=== PATIENT | female | born 1975 | race American Indian/Alaskan Native ===

== ENCOUNTER 2019-06-22 06:50 | Day surgery (SDC) | payer OTHER ==
[2019-06-22] MEDS ORDERED: WATER FOR IRRIG STERILE IR ONE (07:07)
[2019-06-22] MEDS ORDERED: DIPRIVAN 10 MG/ML IV ONE ×2 (08:09)
[2019-06-22] MEDS ORDERED: NACL 0.9% 1000 ML 1,000 ML IV SCH (09:00)
[2019-06-22 09:26] VITALS: BP 140/89
--- NOTE | 2019-06-22 10:44 | Anesthesia Consultation ---
Anesthesia Consult and Med Hx - Airway Mallampati Class: Class II Intubation Access Assessment: Probably Good - Pulmonary Exam CTA: Yes - Cardiac Exam Cardiac Exam: RRR - Pre-Operative Health Status ASA Pre-Surgery Classification: ASA2 Proposed Anesthetic Plan: General, MAC - Cardiovascular System Hx Hypertension: Yes
--- NOTE | 2019-06-22 10:45 | Anesthesia Day of Surgery ---
Anesthesia Day of Surgery - Day of Surgery Patient Examined: Yes Patient H&P Reviewed: Yes Patient is NPO: Yes Beta Blockers: No Cardiac Clearance: No Pulmonary Clearance: No Kamar's Test: N/A
--- NOTE | 2019-06-22 10:45 | Post Anesthesia Evaluation ---
- Post Anesthesia Evaluation Patient Participated: Yes Airway Patent: Yes Stable Respiratory Function: Yes Nausea/Vomiting: No Temp > 96.8F: Yes Pain Manageable: Yes Adequeate Hydration: Yes Anesthesia Complications: No Block Receding Appropriately: Not Applicable Patient on Ventilator: No
== END 2019-06-22 06:51 | disposition home or self-care (01) ==
LOC: GIO 06:50
PROVIDERS: ATTEND Specialist
DX: K21.9 Gastro-esophageal reflux disease without esophagitis (principal); K44.9 Diaphragmatic hernia without obstruction or gangrene; I10 Essential (primary) hypertension; E66.01 Morbid (severe) obesity due to excess calories; Z91.040 Latex allergy status; Z98.84 Bariatric surgery status; Z79.899 Other long term (current) drug therapy; Z91.013 Allergy to seafood; Z98.890 Other specified postprocedural states; Z98.891 History of uterine scar from previous surgery; Z68.39 Body mass index [BMI] 39.0-39.9, adult
CPT/HCPCS: 43235; 81025; J2704; J7030